=== PATIENT | female | born 2000 | race Caucasian/White ===

== ENCOUNTER 2020-07-05 17:59 | Emergency (ER) | payer BC ==
[~2020-07-05] VITALS: Ht 167 cm; Wt 59.0 kg
--- NOTE | 2020-07-05 18:45 | ED Upper Extremity ---
General Chief Complaint: Upper Extremity Stated Complaint: RT WRIST PAIN History of Present Illness Date Seen by Provider: Jul 05, 2020 Time Seen by Provider: 18:39 Initial Comments PT ARRIVES VIA POV STATES AROUND 1630 TODAY, SHE FELL WHILE SKATEBOARDING, FELL BACK AND CAUGHT SELF WITH RIGHT HAND BEHIND HER C/O RIGHT WRIST PAIN NO PARESTHESIAS OR MOTOR DEFICITS NO OTHER INJURIES FROM THE INCIDENT NO PRIOR INJURIES TO THIS WRIST PT IS RIGHT HANDED [employer] STUDENT Allergies and Home Medications Patient Home Medication List Home Medication List Reviewed: Yes Review of Systems Constitutional: no symptoms reported : No LMP: Jun 09, 2020 Control/STD Prophylaxis: None Musculoskeletal: see HPI Skin: no symptoms reported Psychiatric/Neurological: No Symptoms Reported Past Wiuefrw-Wfifva-Alupoq Hx Past Med/Social Hx: Reviewed and Corrections made Past Medical History Surgeries: No Respiratory: No Cardiac: No Neurological: No Reproductive Disorders: No Genitourinary: No Gastrointestinal: No Musculoskeletal: No Endocrine: No HEENT: No Cancer: No Psychosocial: Yes Anxiety Integumentary: No Blood Disorders: No Physical Exam Vital Signs Vital Signs - First Documented 07/05/20 18:41 Temp 37.1 Pulse 99 Resp 18 B/P (MAP) 129/73 (91) Pulse Ox 98 O2 Delivery Room Air Capillary Refill : Height, Weight, BMI Height: '" Weight: lbs. oz. 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 No fracture or dislocation is present. IMPRESSION: Normal right wrist. Reviewed: Reviewed by Me Departure Impression Primary Impression: Right wrist sprain Disposition: HOME, SELF-CARE Condition: Stable Departure-Patient Inst. Referrals: NO,LOCAL PHYSICIAN (PCP) Primary Care Physician JOHNNY LAY MD Patient Instructions: SPLINT CARE, Wrist Sprain ED Add. Discharge Instructions: ICE TO AREA AT 20 MINUTE INTERVALS WEAR SPLINT NEEDED FOR PAIN TYLENOL AND MOTRIN NEEDED FOR PAIN FOLLOW UP WITH [facility] IN 1 WEEK IF NO BETTER All discharge instructions reviewed with patient and/or family. Voiced understanding. ELLIE MYERS DO Jul 05, 2020 18:45
--- NOTE | 2020-07-05 19:25 | Diagnostic Imaging Report ---
INDICATION: Right wrist pain, fell off skateboard today. FINDINGS: Three views of the right wrist demonstrate normal ossification. No fracture or dislocation is present. IMPRESSION: Normal right wrist. Dictated by: Dictated on workstation # [id number]
[2020-07-05 19:35] VITALS: BP 129/73
== END 2020-07-05 19:36 | disposition home or self-care (01) ==
LOC: ER 18:03
DX: S63.501A Unspecified sprain of right wrist, initial encounter (principal); V00.131A Fall from skateboard, initial encounter; Y93.51 Activity, roller skating (inline) and skateboarding
CPT/HCPCS: 73110

== ENCOUNTER → 2020-07-16 | Outpatient (CLI) | payer BC ==
--- NOTE | 2020-07-16 10:36 | Diagnostic Imaging Report ---
INDICATION: Followup injury COMPARISON: None. FINDINGS: 2 views of the right forearm were obtained and show no fractures, dislocations, or other acute bony abnormalities. Joint spaces are well maintained throughout. The soft tissues appear unremarkable. No radiopaque foreign bodies are identified. IMPRESSION: Unremarkable radiographic exam of the right forearm. Dictated by: Dictated on workstation # [id number]
== END ==
LOC: RAD 09:50
PROVIDERS: ATTEND Nurse Practitioner Family
DX: S59.911D Unspecified injury of right forearm, subsequent encounter (principal)
CPT/HCPCS: 73090